=== PATIENT | male | born 2005 | race Caucasian/White ===

== ENCOUNTER 2024-11-04 10:08 | Observation (INO) ==
[2024-11-04 11:24] LABS: Hematocrit (blood only) 44.7 % (42.0-52.0); Hemoglobin 15.1 g/dl (14.0-18.0); Immature Granulocytes # (auto) 0.03 K/uL (0.01-0.20); Immature Granulocytes % (auto) 0.3 %; Mean Corpuscular Hemoglobin 28.7 pg (25.0-34.0); Mean Corpuscular Volume 84.8 fL (80.0-100.0); Platelet Count 205 K/uL (130-400); RDW Standard Deviation 38.5 fL (36.4-46.3); Red Blood Count 5.27 M/uL (4.70-6.10); White Blood Count 11.73 K/ul (4.8-10.8)
[2024-11-04 11:42] LABS: Alanine Aminotransferase 19.0 U/L (7-52); Albumin Globulin Ratio 1.8 (0.9-2); Alkaline Phosphatase 88.0 U/L (34-104); Anion Gap 5.0 (3-11); Bilirubin,Total 1.4 mg/dl (0.2-1.0); Blood Urea Nitrogen 9.0 mg/dl (6-23); Calcium 9.5 mg/dl (8.6-10.3); Carbon Dioxide 29.0 mmol/L (21-32); Chloride 104.0 mmol/L (98-107); Creatinine Clr Calc Pharmacy 175.7 ml/min; Globulin 2.6 gm/dl (2.5-4.0); Glucose 98.0 mg/dl (70-99(Fasting)); Lipase 15.0 U/L (11-82); Potassium 3.9 mmol/L (3.5-5.1); Sodium 138.0 mmol/L (136-145); Total Protein 7.2 gm/dl (6.0-8.3)
[2024-11-04] MEDS: OPTIRAY 320 100ml IV ONE (11:56)
[2024-11-04] MEDS: KETOROLAC TROMETHAMINE 15 MG/ML VIAL IV STA (12:10)
--- NOTE | 2024-11-04 12:30 | CT Scan Report ---
CT SCAN OF THE ABDOMEN AND PELVIS WITH IV CONTRAST CLINICAL HISTORY: Right-sided abdominal pain. COMPARISON STUDY: Abdominal x-rays dated 01/18/2022. Renal ultrasound dated 09/23/2020 TECHNIQUE: Following the IV administration of 93 cc of Optiray 320, CT scan of the abdomen and pelvi s is performed from the lung bases to the proximal femora. Images are reviewed in the axial, sagittal , and coronal planes. IV contrast was administered without complication. A dose lowering technique wa s utilized adhering to the principles of ALARA. CT DOSE: 1379.53 mGy.cm FINDINGS: Lung bases: The heart is normal in size and without pericardial effusion. The lung bases are clear. Liver: The contrast-enhanced liver is normal in size, contour, and attenuation. There is no intrahepa tic biliary ductal dilatation. The hepatic veins and portal veins are patent. Gallbladder: Unremarkable. Spleen: Normal in size and attenuation. Pancreas: Unremarkable. Adrenal glands: Unremarkable. Kidneys: The contrast enhanced kidneys are normal in size and without hydronephrosis. The kidneys enh ance symmetrically. Abdominal vasculature: The abdominal aorta is normal in course and caliber. Bowel: There is no bowel obstruction. The distal appendix is fluid-filled and mildly dilated measurin g 8 mm in diameter. The appendiceal wall is thickened and there is periappendiceal inflammation. Find ings are consistent with acute appendicitis. A calcified appendicolith is seen on image #261. No flui d collection is seen to suggest abscess. Peritoneum: There is trace free fluid in the pelvis. No intraperitoneal free air is seen. Lymphadenopathy: None. Pelvic viscera: The bladder, prostate, and seminal vesicles are normal as visualized. Skeletal structures: No lytic or blastic lesions are seen. IMPRESSION: 1. Mild acute appendicitis. 2. There is no evidence of abscess or perforation. 3. Trace free fluid in the pelvis is nonspecific and likely reactive. ACT 112: Negative or not required by law. Electronically signed by: Mason Foley M.D. 11/04/2024 12:28 PM
[2024-11-04] MEDS: PIPERACILLIN/TAZOBACTAM 4.5 GM/100 ML BAG IV ONE (14:41)
[2024-11-04] MEDS ORDERED: ATROPINE SULFATE 0.1 MG/ML 10ML SYR IV PRN (15:16)
[2024-11-04] MEDS ORDERED: ONDANSETRON INJ 2 MG/ML 2 ML VIAL IV PRN ×2 (15:16→19:00)
--- NOTE | 2024-11-04 15:17 | Anesthesiology Consultation ---
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 Consults Requested none History Surgery Operation Date: 11/04/24 13:45 Proposed Procedures p Laparoscopic Appendectomy - Surendra Looney MD Height/Weight Height: 6 ft 4 in Weight: 98.2 kg Allergies Allergy/AdvReac Type Severity Reaction Status Date / Time No Known Allergies Allergy Unverified 11/03/23 17:12 Past Surgical History Surgical History No pertinent past surgical history Social History Smoking Status: Never smoker Physical Exam Vital Signs Last Vital Signs Temp 37 C 11/04/24 10:14 Pulse 65 11/04/24 15:11 Resp 18 11/04/24 15:11 BP 135/71 11/04/24 15:11 Pulse Ox 99 11/04/24 15:11 O2 Del Method Room Air 11/04/24 15:11 Testing Laboratory Results 11/04/24 11:10 11/04/24 11:10
[2024-11-04] MEDS ORDERED: DEXAMETHASONE SOD INJ 4 MG/ML VIAL ONE (15:27)
[2024-11-04] MEDS ORDERED: MIDAZOLAM HCL 1 MG/ML 2ML VIAL ONE (15:27)
[2024-11-04] MEDS ORDERED: ONDANSETRON INJ 2 MG/ML 2 ML VIAL ONE (15:27)
[2024-11-04] MEDS ORDERED: LIDOCAINE 2% 2 ML VIAL/AMP(20MG/ML) INFIL ONE (15:27)
[2024-11-04] MEDS ORDERED: PROPOFOL IV EMULSION 10 MG/ML 20 ML VIAL IV ONE ×2 (15:27→16:30)
--- NOTE | 2024-11-04 15:27 | Emergency Department Note ---
ED Provider Note History of Present Illness Chief Complaint: Abdominal Pain Stated Complaint: PAIN IN LOWER ABD RIGHT SIDE Time Seen by Provider: 11/04/24 10:18 Source: patient Mode of arrival: ambulatory Limitations: no limitations Patient is a 18 year old male that presents to the emergency department with complaints of right sided abdominal pain. Patient reports that his pain started last evening and has persisted since. Patient denies any nausea, vomiting or urinary symptoms. Patient denies any previous abdominal surgery and notes that he still has his appendix. Home Medications Medication Instructions Recorded Confirmed Type oxycodone-acetaminophen 5 mg-325 1 tab PO Q6H PRN pain #5 tabs 11/05/24 Rx mg tablet Allergies Allergy/AdvReac Type Severity Reaction Status Date / Time No Known Allergies Allergy Unverified 11/03/23 17:12 Past Med/Surg History Problem List (Updated 11/06/24 @ 04:02 by STEVEN [place]) Appendicitis (Acute) Asthma Surgical History No pertinent past surgical history Social History Smoking Status: Current every day smoker Tobacco Type: E-cigarettes / Vaping Second Hand Exposure: No; Do You Dip or Chew Tobacco: No; Tobacco Cessation Education Requested by Patient: No Hx Alcohol Use: No Hx Substance Use: No Preferred Language: Cape Verdean Communication Ability: Effective Patient Care Provider Required: No Beliefs That Will Affect Care: None Current Living Situation: Parent Other Information That Helps Us Care for You: No Feels Safe at Home: Yes Safety Concerns: Feels Safe At This Time Assistive Devices: None Physical Exam Vital Signs Vital Signs - 24 hr 11/04/24 10:14 11/04/24 11:30 11/04/24 13:00 Temperature 37 C Temperature Source Temporal Artery Scan Pulse Rate 96 H Pulse Rate [Left Finger] 99 H 68 Pulse Rhythm [Left Finger] Regular Pulse Strength [Left Finger] Normal Respiratory Rate 18 20 14 Respiratory Effort / Characteristics Non-Labored Spontaneous Non-Labored Spontaneous Non-Labored Respiratory Depth Normal Normal Normal Respiratory Pattern Regular Regular Blood Pressure 130/79 Blood Pressure [Left Arm] 144/92 H 138/76 Blood Pressure Mean 96 Blood Pressure Mean [Left Arm] 109 96 Blood Pressure Position Sitting Blood Pressure Position [Left Arm] Sitting Pulse Oximetry 96 93 96 Oxygen Delivery Method Room Air Room Air Room Air Sepsis Recent Fever Within 48 Hours No Sepsis New/Unexplained Change in Mental Status No Sepsis Action Taken by Nursing No Action Required 11/04/24 13:16 11/04/24 14:31 11/04/24 15:11 Temperature Temperature Source Pulse Rate 69 Pulse Rate [Left Finger] 56 L 65 Pulse Rhythm [Left Finger] Regular Pulse Strength [Left Finger] Normal Respiratory Rate 20 18 Respiratory Effort / Characteristics Non-Labored Spontaneous Non-Labored Spontaneous Respiratory Depth Normal Normal Respiratory Pattern Regular Blood Pressure 138/76 Blood Pressure [Left Arm] 101/54 L 135/71 Blood Pressure Mean 96 Blood Pressure Mean [Left Arm] 69 92 Blood Pressure Position Blood Pressure Position [Left Arm] Sitting Lying Pulse Oximetry 99 98 99 Oxygen Delivery Method Room Air Room Air Room Air Sepsis Recent Fever Within 48 Hours Sepsis New/Unexplained Change in Mental Status Sepsis Action Taken by Nursing VITAL SIGNS - Vital signs and nursing notes were reviewed. GENERAL - 18-year-old male appearing his stated age who is in no acute distress. Communicates well with provider and answers questions appropriately. HEAD - NC/AT. EYES - PERRL with EOMI bilaterally. Conjunctiva pink and moist with no injection noted. EARS - No deformities of external structures noted on gross examination bilaterally. LUNGS - Chest wall symmetric without accessory muscle use, intercostals retractions, or central cyanosis. Breath sounds clear throughout all kc. No wheezes, rales, or rhonchi appreciated. CARDIAC - RRR with S1/S2. No murmur, rubs, or gallops appreciated. ABDOMEN - Abdominal contour without pulsations or visible masses. Negative Issac's or Reza Felipe's Signs. BS normoactive all four quadrants. Mildly increased tenderness to palpation appreciated in the right lower quadrant. No guarding. No Rebound Tenderness. No palpable masses, hepatosplenomegaly, or ascites noted. NEUROLOGIC - Cranial nerves II through XII grossly intact. Sensory intact to light touch throughout. PSYCH - A&Ox3 and cooperates fully with examiner. Pt is very pleasant and interacts well with examiner. Course Administered Medications Discontinued Medications Bupivacaine HCl/Epinephrine Bitart (Bupivacaine/Epinephrine 0.5% Mpf 1:200,000 30 Ml Vial) Confirm Administered Dose 30 ml .ROUTE .STK-MED ONE Stop: 11/04/24 15:38 Last Admin: 11/04/24 16:42 Dose: 20 ml Documented By: CHRIS Piperacillin Sod/Tazobactam Sod (Zosyn) 4.5 gm in 100 mls @ 200 mls/hr IV NOW ONE; Protocol Stop: 11/04/24 14:57 Last Infusion: 11/04/24 15:13 Dose: Infused Documented By: Admin: 11/04/24 14:41 Dose: 200 mls/hr Documented By: WARD Lactated Ringer's (Lr) 1,000 mls @ 80 mls/hr IV .[id number] REYNOLD Stop: 11/07/24 18:59 Last Admin: 11/05/24 08:02 Dose: 80 mls/hr Documented By: Infusion: 11/05/24 08:02 Dose: Infused Documented By: Admin: 11/04/24 19:37 Dose: 80 mls/hr Documented By: DO Piperacillin Sod/Tazobactam Sod (Zosyn) 4.5 gm in 100 mls @ 25 mls/hr IV Q8H REYNOLD; Protocol Stop: 11/14/24 20:59 Last Infusion: 11/05/24 09:53 Dose: Infused Documented By: Admin: 11/05/24 05:46 Dose: 25 mls/hr Documented By: Infusion: 11/05/24 01:39 Dose: Infused Documented By: Admin: 11/04/24 21:20 Dose: 25 mls/hr Documented By: DO Ioversol (Optiray 320 100ml) 93 ml IV ONCE ONE Stop: 11/04/24 11:57 Last Admin: 11/04/24 11:56 Dose: 93 ml Documented By: AVNI Ketorolac Tromethamine (Ketorolac Tromethamine 15 Mg/Ml Vial) 15 mg IV NOW STA Stop: 11/04/24 12:06 Last Admin: 11/04/24 12:10 Dose: 15 mg Documented By: WARD Medical Decision Making Differential Diagnosis Differential diagnoses includes gastritis, gastroenteritis, IBS, small bowel obstruction, pancreatitis, peritonitis, constipation, diverticulitis, appendicitis, abdominal abscess, among others. Medical Records Attestation: I reviewed the patient's medical records. Home Medications was personally reviewed by me Laboratory Data Attestation: I reviewed the patient's lab results. 11/04/24 11:10 11/04/24 11:10 Lab Results 11/04/24 Range/Units 11:10 WBC 11.73 H (4.8-10.8) K/ul RBC 5.27 (4.70-6.10) M/uL Hgb 15.1 (14.0-18.0) g/dl Hct 44.7 (42.0-52.0) % MCV 84.8 (80.0-100.0) fL MCH 28.7 (25.0-34.0) pg MCHC 33.8 (32.0-36.0) g/dL RDW Std Deviation 38.5 (36.4-46.3) fL RDW Coeff of Ariella 12.5 (11.5-14.5) % Plt Count 205 (130-400) K/uL MPV 12.1 (9.4-12.4) fL Immature Gran % (Auto) 0.3 % Neut % (Auto) 81.8 % Lymph % (Auto) 8.5 % Morrill % (Auto) 9.0 % Eos % (Auto) 0.1 % Baso % (Auto) 0.3 % Neut # (Auto) 9.59 H (1.40-6.50) K/uL Lymph # (Auto) 1.00 L (1.20-3.40) K/uL Morrill # (Auto) 1.06 H (0.11-0.59) K/uL Eos # (Auto) 0.01 (0.00-0.50) K/uL Baso # (Auto) 0.04 (0.00-0.20) K/uL Immature Gran # (Auto) 0.03 (0.01-0.20) K/uL Sodium 138 (136-145) mmol/L Potassium 3.9 (3.5-5.1) mmol/L Chloride 104 (98-107) mmol/L Carbon Dioxide 29 (21-32) mmol/L Anion Gap 5 (3-11) BUN 9 (6-23) mg/dl Creatinine 0.83 (0.6-1.4) mg/dl Est Cr Clr Drug Dosing 175.7 ml/min eGFR 129.30 BUN/Creatinine Ratio 10.8 (10-20) Glucose 98 (70-99(Fasting)) mg/dl Calcium 9.5 (8.6-10.3) mg/dl Total Bilirubin 1.4 H (0.2-1.0) mg/dl AST 20 (13-39) U/L ALT 19 (7-52) U/L Alkaline Phosphatase 88 (34-104) U/L Total Protein 7.2 (6.0-8.3) gm/dl Albumin 4.6 (3.4-5.0) gm/dl Globulin 2.6 (2.5-4.0) gm/dl Albumin/Globulin Ratio 1.8 (0.9-2) Lipase 15 (11-82) U/L Imaging Data Radiologist's Impression: Abdomen/Pelvis CT 11/04/24 10:18 CT SCAN OF THE ABDOMEN AND PELVIS WITH IV CONTRAST CLINICAL HISTORY: Right-sided abdominal pain. COMPARISON STUDY: Abdominal x-rays dated 01/18/2022. Renal ultrasound dated 09/23/2020 TECHNIQUE: Following the IV administration of 93 cc of Optiray 320, CT scan of the abdomen and pelvis is performed from the lung bases to the proximal femora. Images are reviewed in the axial, sagittal, and coronal planes. IV contrast was administered without complication. A dose lowering technique was utilized adhering to the principles of ALARA. CT DOSE: 1379.53 mGy.cm FINDINGS: Lung bases: The heart is normal in size and without pericardial effusion. The lung bases are clear. Liver: The contrast-enhanced liver is normal in size, contour, and attenuation. There is no intrahepatic biliary ductal dilatation. The hepatic veins and portal veins are patent. Gallbladder: Unremarkable. Spleen: Normal in size and attenuation. Pancreas: Unremarkable. Adrenal glands: Unremarkable. Kidneys: The contrast enhanced kidneys are normal in size and without hydronephrosis. The kidneys enhance symmetrically. Abdominal vasculature: The abdominal aorta is normal in course and caliber. Bowel: There is no bowel obstruction. The distal appendix is fluid-filled and mildly dilated measuring 8 mm in diameter. The appendiceal wall is thickened and there is periappendiceal inflammation. Findings are consistent with acute appendicitis. A calcified appendicolith is seen on image #261. No fluid collection is seen to suggest abscess. Peritoneum: There is trace free fluid in the pelvis. No intraperitoneal free air is seen. Lymphadenopathy: None. Pelvic viscera: The bladder, prostate, and seminal vesicles are normal as visualized. Skeletal structures: No lytic or blastic lesions are seen. IMPRESSION: 1. Mild acute appendicitis. 2. There is no evidence of abscess or perforation. 3. Trace free fluid in the pelvis is nonspecific and likely reactive. ACT 112: Negative or not required by law. Electronically signed by: Mason Foley M.D. 11/04/2024 12:28 PM MDM Narrative Patient is a 18 year old male that presents to the emergency department with complaints of right sided abdominal pain. Patient reports that his pain started last evening and has persisted since. Patient denies any nausea, vomiting or urinary symptoms. Patient denies any previous abdominal surgery and notes that he still has his appendix. Patient was evaluated by myself and findings were noted in the physical exam above. Patient was ordered IV placement, lab work, urinalysis and a CT of the abdomen and pelvis. Patient declined pain medication at this time. Patient's lab work resulted with a mildly elevated white blood cell count of 11.73. Patient had no indication of anemia with a hemoglobin of 15.1 and hematocrit of 44.7. Patient had no significant electrolyte imbalance noted. Total bilirubin was mildly elevated at 1.4. Patient had a CT of the abdomen and pelvis completed which showed mild acute appendicitis with no evidence of abscess or perforation. I discussed all of these findings with the patient who verbalized understanding. I discussed with the patient that i would consult general surgery as they would likely take his appendix out tonight or tomorrow. Patient verbalized understanding and was agreeable to that plan. Patient was ordered a dose of Zosyn at this time and still declined need for pain medication, patient reports that he is having some discomfort but it is tolerable at this time. I contacted the audio visual secretary to reach out to Dr. Looney through the appropriate scrap preparation supervisor procedure. After a good amount of time, I did speak with Dr. Looney about this patient. I gave him a report on the patient's chief complaint, current status and the results of his imaging and lab work. I made Dr. Looney aware that the patient has not had anything to eat or drink today and was overall a healthy [address] Looney verbalized understanding and agreed to take the patient to the OR under his service. Please refer to Dr. Looney and the OR team's documentation for further evaluation and management of this patient. Impression Appendicitis Discharge Plan Visit Data Chief Complaint: Abdominal Pain Stated Complaint: PAIN IN LOWER ABD RIGHT SIDE ED Provider: Lorie Padilla ED Midlevel Provider: Ana Esteban Discharge Problem: Appendicitis Patient Disposition: Admitted As Inpatient Condition: Fair Discharge Instructions Interventions: ED Discharge Assessment Last Done: 11/04/24 15:16 ED DC CONDITION Conditon at Discharge Condition at Discharge: Fair Discharge Problem: Appendicitis Qualifiers: Appendicitis type: acute appendicitis Acute appendicitis type: unspecified acute appendicitis type Qualified Code(s): K35.80 - Unspecified acute appendicitis
[2024-11-04] MEDS ORDERED: ROCURONIUM BROMIDE 10 MG/ML 5 ML VIAL IV ONE (15:28)
[2024-11-04] MEDS ORDERED: ACETAMINOPHEN 1000 MG/100 ML IV IV ONE (15:41)
--- NOTE | 2024-11-04 15:47 | History & Physical Report ---
Date of Service November 04, 2024 Assessment & Plan (1) Appendicitis: Plan: IV abx IVF to OR for lap appendectomy History of Present Illness Primary Care Provider: NO PCP This is a 18-year-old male came in with acute abdominal pain. He underwent a workup in which a CT scan shows an acute appendicitis with an appendicolith. Allergies Allergy/AdvReac Type Severity Reaction Status Date / Time No Known Allergies Allergy Unverified 11/03/23 17:12 Past Med/Surg History Problem List (Updated 11/04/24 @ 15:47 by Surendra Looney MD) Appendicitis Asthma Surgical History No pertinent past surgical history Social History Smoking Status: Never smoker Preferred Language: Eritrean Feels Safe at Home: Yes Review of Systems no fever and no chills no problem reported no problem reported no cough and no dyspnea no chest pain + abdominal pain and + nausea; no vomiting and no change in bowel habits no dysuria no back pain no problem reported no localized weakness and no generalized weakness no behavioral changes no problem reported no easy bleeding and no easy bruising Physical Exam Constitutional: WD/WN, vitals as above Eyes: no scleral abnormality ENMT: external ear and nose normal, oropharynx normal Neck: trachea midline Respiratory: normal respiratory effort, lungs clear to auscultation Cardiovascular: RRR, no murmur, no edema Gastrointestinal (Abdomen): Inspection/Auscultation: abdomen normal to inspection and normal bowel sounds; abdomen not distended Percussion/Palpation: + abdomen tender and abdomen soft; no guarding and abdomen not rigid Musculoskeletal: Head/Neck/Chest: normocephalic and head atraumatic Skin: no rashes, warm and dry Results & Data Vital Signs (Past 12 Hours) Vital Signs Temp Pulse Pulse Resp BP BP Pulse Ox 11/04/24 15:20 36.5 C 61 16 121/65 96 11/04/24 15:11 65 18 135/71 99 11/04/24 14:31 56 L 20 101/54 L 98 11/04/24 13:16 69 138/76 99 11/04/24 13:00 68 14 138/76 96 11/04/24 11:30 99 H 20 144/92 H 93 07/08/25 10:14 37 C 96 H 18 130/79 96 O2 Del Method 11/04/24 15:20 Room Air 11/04/24 15:11 Room Air 11/04/24 14:31 Room Air 11/04/24 13:16 Room Air 11/04/24 13:00 Room Air 11/04/24 11:30 Room Air 11/04/24 10:14 Room Air Diagnostic Findings CT SCAN OF THE ABDOMEN AND PELVIS WITH IV CONTRAST CLINICAL HISTORY: Right-sided abdominal pain. COMPARISON STUDY: Abdominal x-rays dated 01/18/2022. Renal ultrasound dated 09/23/2020 TECHNIQUE: Following the IV administration of 93 cc of Optiray 320, CT scan of the abdomen and pelvis is performed from the lung bases to the proximal femora. Images are reviewed in the axial, sagittal, and coronal planes. IV contrast was administered without complication. A dose lowering technique was utilized adhering to the principles of ALARA. CT DOSE: 1379.53 mGy.cm FINDINGS: Lung bases: The heart is normal in size and without pericardial effusion. The lung bases are clear. Liver: The contrast-enhanced liver is normal in size, contour, and attenuation. There is no intrahepatic biliary ductal dilatation. The hepatic veins and portal veins are patent. Gallbladder: Unremarkable. Spleen: Normal in size and attenuation. Pancreas: Unremarkable. Adrenal glands: Unremarkable. Kidneys: The contrast enhanced kidneys are normal in size and without hydronephrosis. The kidneys enhance symmetrically. Abdominal vasculature: The abdominal aorta is normal in course and caliber. Bowel: There is no bowel obstruction. The distal appendix is fluid-filled and mildly dilated measuring 8 mm in diameter. The appendiceal wall is thickened and there is periappendiceal inflammation. Findings are consistent with acute appendicitis. A calcified appendicolith is seen on image #261. No fluid collection is seen to suggest abscess. Peritoneum: There is trace free fluid in the pelvis. No intraperitoneal free air is seen. Lymphadenopathy: None. Pelvic viscera: The bladder, prostate, and seminal vesicles are normal as visualized. Skeletal structures: No lytic or blastic lesions are seen. IMPRESSION: 1. Mild acute appendicitis. 2. There is no evidence of abscess or perforation. 3. Trace free fluid in the pelvis is nonspecific and likely reactive.
[2024-11-04] MEDS ORDERED: SUGAMMADEX SODIUM 200 MG/2 ML VIAL IV ONE (16:37)
[2024-11-04] MEDS: BUPIVACAINE/EPINEPHRINE 0.5% MPF 1:200,000 30 ML VIAL ONE (16:42)
--- NOTE | 2024-11-04 16:54 | Operative Report ---
Post Operative Report Pre & Post Diagnosis Operation Date: 11/04/24 13:45 Acute appendicitis I identified the patient and participated in the time-out.: Yes Procedure Operation Date: 11/04/24 13:45 Laparoscopic appendectomy Surgeon Surendra Looney MD Delivery Driver/Customer Service None Estimated Blood Loss 7 Findings Consistent with Post-Op Diagnosis Specimens Appendix to pathology Drains None Anesthesia Type General Complications none Disposition Accompanied Patient To Recovery: No Disposition: Recovery Room Indications Is a 18-year-old male admitted to the ED with acute abdominal pain. Workup showed an acute appendicitis by CT scan. We talked in detail about this and recommended a laparoscopic appendectomy and ectomy. He had an appendicolith. Description of Procedure The patient was taken to the OR and underwent excellent general anesthesia. Their abdomen was prepped and draped in normal sterile fashion. A transverse supraumbilical incision was made, towel clamps were used to create tension on the abdominal wall as a visualized 11 port was placed in the supraumbilical position into the peritoneal cavity. Good pneumoperitoneum was achieved to about 15 mmHg pressure. Once this was done, a 12 mm left lower quadrant port , a 5mm suprapubic port , and a 5mm right upper quadrant port were all placed in normal fashion. Patient was then placed in head down and rolled to the left. A good diagnostic lap was performed. They had obvious acute appendicitis. The cecum was grasped with an atraumatic grasper. A grasper was then was then used to grasp the tip of the appendix. The mesoappendix was splayed open and a harmonic scalpel was used to take down the mesoappendix. The base of the appendix was identified and an Endo MAEGAN stapler was used to transect the appendix at its base. A endobag was then inserted through the left lower quadrant port and the appendix was placed into the bag, The bag was removed through the left lower quadrant port. The appendix was sent for pathologic evaluation. The pneumoperitoneum was re-established after the 12 mm port was replaced. Saline was then used to irrigate the abdomen. There was no active bleeding nor any other abnormalities noted in the abdomen. The patient was then placed back in neutral position, the ports were removed and the pneumoperitoneum decompressed. The 12mm port fascia was then closed using a 0 Vicryl. The skin was then anesthetized with 0.5% Marcaine with epinephrine local. Interrupted Vicryl is used to close the skin. Dermabond was used to reinforce the incisions. Sterile dressings were applied. The patient tolerated procedure without complications was sent to the postop recovery period of observation. They will be sent to the floor for the rest of their care. I attest to the content of the Intraoperative Record and any orders documented therein. Any exceptions are noted below.
--- NOTE | 2024-11-04 17:37 | Anesthesiology Progress Note ---
Date of Service November 04, 2024 Anesthesia Post Procedure Vital Signs Vital Signs: Temp Pulse Pulse Pulse Resp BP BP 11/04/24 17:30 36.9 C 59 L 18 127/73 11/04/24 17:20 62 20 124/68 11/04/24 17:10 67 18 136/67 11/04/24 17:00 36.2 C L 85 18 162/82 H 11/04/24 15:20 36.5 C 61 16 121/65 11/04/24 15:11 65 18 135/71 11/04/24 14:31 56 L 20 101/54 L 11/04/24 13:16 69 138/76 11/04/24 13:00 68 14 138/76 11/04/24 11:30 99 H 20 144/92 H 11/04/24 10:14 37 C 96 H 18 130/79 Pulse Ox O2 Del Method O2 Flow Rate 11/04/24 17:30 97 Room Air 11/04/24 17:20 100 Oxymask 2 11/04/24 17:10 100 Oxymask 4 11/04/24 17:00 100 Oxymask 6 11/04/24 15:20 96 Room Air 11/04/24 15:11 99 Room Air 11/04/24 14:31 98 Room Air 11/04/24 13:16 99 Room Air 11/04/24 13:00 96 Room Air 11/04/24 11:30 93 Room Air 11/04/24 10:14 96 Room Air Pain Intensity Right Abdomen: Pain Intensity: 4 Transfer of Care Handoff Completed per policy Notes Mental Status: alert / awake / arousable Patient Amnestic to Procedure: Yes Nausea / Vomiting: adequately controlled Pain: adequately controlled Airway Patency, RR, SpO2: stable & adequate BP & HR: stable & adequate Hydration State: stable & adequate Anesthetic Complications: no major complications apparent and Pt Satisfied with anesthetic care
[2024-11-04] MEDS ORDERED: MoRPHine SULFATE 4 MG/ML 1 ML CARP\\VIAL IV PRN (19:00)
[2024-11-04] MEDS ORDERED: MoRPHine SULFATE 2 MG/ML CARP IV PRN (19:00)
[2024-11-04] MEDS ORDERED: PROMETHAZINE 25 MG/51 ML BAG IV PRN (19:00)
[2024-11-04] MEDS: LACTATED RINGER'S 1,000 ML IV SCH (19:37)
[2024-11-04] MEDS: PIPERACILLIN/TAZOBACTAM 4.5 GM/100 ML BAG IV SCH (21:20)
[2024-11-05 00:07] LABS: Appearance Urine Clear (Clear); Glucose Urine UA Negative (Negative)
[2024-11-05 07:11] VITALS: O2SAT 97
--- NOTE | 2024-11-05 10:40 | Discharge Summary ---
Date of Service November 05, 2024 Admission HPI Per Admitting Provider This is a 18-year-old male came in with acute abdominal pain. He underwent a workup in which a CT scan shows an acute appendicitis with an appendicolith. Principal Diagnosis Acute appendicitis with appendicolith Discharge Exam Constitutional WD/WN, vitals as above cooperative and comfortable; no acute distress and not ill appearing Respiratory normal respiratory effort; no respiratory distress and no labored breathing Gastrointestinal (Abdomen) Inspection/Auscultation: abdomen normal to inspection and + abdominal surgical incision (c/d/i with dermabond); abdomen not distended Percussion/Palpation: + abdomen tender (minimal at incision sites, appropriate postop) and abdomen soft; no guarding, abdomen not rigid and abdomen not firm Skin no rashes, warm and dry Psychiatric A+Ox3, euthymic affect Discharge Data Allergies Allergy/AdvReac Type Severity Reaction Status Date / Time No Known Allergies Allergy Unverified 11/03/23 17:12 Consultations 11/04/24 12:57 Consult General Surgery Stat Procedures Performed Operation Date: 11/04/24 13:45 Actual Procedures p Laparoscopic Appendectomy(Not Applicable) - Surendra Looney MD Ordered Studies 11/04/24 10:18 CT Abd and Pelvis [CT abd pelvis IV con only] Stat Hospital Course (1) Appendicitis: Patient was taken to operating room from emergency department for laparoscopic appendectomy on 11/04/[address] Looney. Patient found to have uncomplicated appendicitis. Tolerated procedure without difficulty and transferred to recovery then to med/surg floor for postop care. Tolerated advanced diet and postoperative pain was controlled. Patient was discharged home on POD # 1 in stable condition. Total Time Total Time Spent Total Time Spent (In Minutes): 20 Total Time Includes: Examination of the Patient, Discharge Planning, Medication Reconciliation and Communication With Other Providers Discharge Plan Discharge Items Patient Disposition: Home - Self-Care Reason For Visit: APPENDICITIS Discharge Diagnosis: acute appendicitis Activity: Per Instructions section Non-emergency contact: Primary Care Provider and Surgeon Call non-emergency contact if: you have any medication questions, your symptoms worsen, your pain is worsening, you have a fever, your temperature is above 101, your wound has increased redness, your wound has increased drainage and your wound pain has increased Follow-up/Referrals: Katherine Rosenberg PA-C [Physician Padded Products Finisher] - PCP,NO [Primary Care Provider] - Diet: Regular Addtl Attending Provider Instructions: Post-Surgical ~Discharge Instructions Activity Recommendations: - lifting limitation: (20 pounds for 23weeks), - exercise/sex/sports limit: (nonstrenuous for 2 weeks), - driving or machine use limit: (none for at least 3 days and no longer taking narcotic pain medication), - Shower/bathe limit: (may shower, no submerging incisions underwater for 2 weeks) Diet: - Resume previous diet SPECIAL CARE INSTRUCTIONS: - May shower. Let water run over area and pat dry. - Leave surgical glue on incisions, this will fall off on its own. - Call the surgeon's office with any questions or concerns - - (ex. temperature higher than 101 degrees F, excessive bleeding or pain). MEDICATIONS: - Resume previous medications unless instructed otherwise by your surgeon. - May alternate extra strength Tylenol and Ibuprofen as needed for pain -650 mg Tylenol every 6 hours as needed - Ibuprofen 600 mg every 6 hours as needed , take with food - Percocet 1 every 6 hours, as needed for moderate to severe pain Be cautious of taking Tylenol with Percocet. Each tablet of Percocet has 325 mg of Tylenol. Do not exceed 3000 mg of Tylenol in 24 hour period. - Recommend daily stool softener (Colace) while taking narcotic pain medication to prevent constipation or straining. Drink plenty of water daily. FOLLOW UP VISIT: - If not already scheduled, please call the office to schedule a two week follow-up appointment. Office number Pending Studies at Discharge: Yes (pathology) Stand-Alone Forms: [facility] [employer], Smoking Cessation Medications and DC Order Prescriptions: New oxycodone-acetaminophen 5-325 mg tablet 1 tab PO Q6H PRN (Reason: pain) Qty: 5 0RF Discharge Orders: Discharge Order (Routine); Ordered 11/05/24 Ordered By: Katherine Rosenberg Admission Data Admit Date/Time: 11/04/24 16:57 Attending Provider: Surendra Looney Admit Provider: Surendra Looney Primary Care Provider: PCP,NO Other Providers: Surendra Looney
[2024-11-05 11:35] VITALS: BP 123/51; PULSE 79; RESP 18; TEMP 98.2
== END 2024-11-05 14:05 | disposition home or self-care (01) ==
LOC: ED 10:08 → OR 15:50 → 3E 15:50

== ENCOUNTER 2025-04-09 14:24 | Observation (INO) ==
[2025-04-09] MEDS: ALUMINUM/MAGNESIUM SUSP 30 ML UDC PO STA (16:12)
[2025-04-09] MEDS: ONDANSETRON INJ 2 MG/ML 2 ML VIAL IV STA (16:12)
[2025-04-09] MEDS: FAMOTIDINE 20MG IV PUSH 20 MG/5 ML SYR IV STA (16:12)
[2025-04-09] MEDS: SODIUM CHLORIDE 0.9% 1,000 ML IV STA (16:13)
[2025-04-09 16:29] LABS: Hematocrit (blood only) 43.1 % (42.0-52.0); Hemoglobin 15.3 g/dL (14.0-18.0); Immature Granulocytes # (auto) 0.02 K/uL (0.01-0.20); Immature Granulocytes % (auto) 0.3 %; Mean Corpuscular Hemoglobin 29.2 pg (25.0-34.0); Mean Corpuscular Volume 82.3 fL (80.0-100.0); Platelet Count 209 K/uL (130-400); RDW Standard Deviation 36.3 fL (36.4-46.3); Red Blood Count 5.24 M/uL (4.70-6.10); White Blood Count 7.47 K/ul (4.8-10.8)
--- NOTE | 2025-04-09 16:29 | Electrocardiogram Report ---
Test Reason : Blood Pressure : */* mmHG Vent. Rate : 87 BPM Atrial Rate : 87 BPM P-R Int : 156 ms QRS Dur : 106 ms QT Int : 358 ms P-R-T Axes : 71 13 41 degrees QTcB Int : 430 ms Normal sinus rhythm with sinus arrhythmia Normal ECG No previous ECGs available Confirmed by Saravanan Pascual ([id number]) on 04/09/2025 4:29:32 PM Referred By: Confirmed By: Saravanan Pascual
[2025-04-09 16:44] LABS: Alanine Aminotransferase 278.0 U/L (7-52); Albumin Globulin Ratio 1.5 (0.9-2); Albumin Level 4.6 gm/dl (3.4-5.0); Alkaline Phosphatase 190.0 U/L (34-104); Anion Gap 8.0 (3-11); Bilirubin,Total 3.1 mg/dl (0.2-1.0); Blood Urea Nitrogen 10.0 mg/dl (6-23); Calcium 9.7 mg/dl (8.6-10.3); Carbon Dioxide 29.0 mmol/L (21-32); Chloride 100.0 mmol/L (98-107); Creatinine Clr Calc Pharmacy 207.1 ml/min; Globulin 3.1 gm/dl (2.5-4.0); Glucose 92.0 mg/dl (70-99(Fasting)); Lipase 24.0 U/L (11-82); Potassium 4.1 mmol/L (3.5-5.1); Sodium 137.0 mmol/L (136-145); Total Protein 7.7 gm/dl (6.0-8.3)
[2025-04-09 16:56] LABS: INR 1.1 (0.9-1.1); Prothrombin Time 11.8 Seconds (9.0-12.0)
--- NOTE | 2025-04-09 17:14 | XRay Report ---
Technique: 2 frontal views of the chest were obtained Comparison is made to the prior examinations dated 01/18/2022 Findings: There are no confluent pulmonary infiltrates. The heart size is within normal limits. No pleural effusion or pneumothorax is seen. There is no definite pulmonary nodule. No fracture is noted. No foreign body is seen Impression: No active disease Electronically signed by Hosea Mendes 04-09-2025 5:14 PM
--- NOTE | 2025-04-09 18:46 | Emergency Department Note ---
Impression & Plan Abdominal pain, epigastric, Transaminitis, High bilirubin ED Provider Note CHIEF COMPLAINT: Upper abdominal pain, increased pain with deep breathing HISTORY OF PRESENT ILLNESS: This 19-year-old male patient presents to the emergency department via private vehicle, by mother for evaluation of epigastric pain. The patient reports increased pain with deep breathing. He denies any chest pain. He states the pain is very sharp in nature. It is worse with deep breathing and certain movements. He states he does feel it at rest while sitting and also while lying down. Patient denies any shortness of breath. He denies any nausea or vomiting. He states he was eating spicy tacos the day the pain started. Patient denies any fever or illness. No diarrhea or constipation. Dysuria, urinary frequency, urinary hesitancy, hematuria. No history of similar symptoms. History provided by: Patient REVIEW OF SYSTEMS: A 10 system review of systems was performed with positives and pertinent negatives listed in the history of present illness. All other systems were reviewed and are negative. ALLERGIES: NKDA PHYSICAL EXAM: VITALS: Vitals are noted on the nurse's note and reviewed by myself. GENERAL: This is a 19-year-old male, in no acute distress, nondiaphoretic, well- developed well-nourished. SKIN: The skin was without rashes, erythema, edema, or bruising. There is no tenting of the skin. Capillary refill less than 2 seconds. HEAD: Normocephalic atraumatic. EYES: Conjunctivae without injection, sclerae without icterus. MOUTH: Mucous membranes moist. NECK: Supple without nuchal rigidity. No lymphadenopathy. Cervical spine is nontender. No JVD. HEART: Regular rate and rhythm without murmurs gallops or rubs. LUNGS: Clear to auscultation bilaterally without wheezes, rales or rhonchi. No retractions or accessory muscle use. ABDOMEN: Positive bowel sounds x 4. Epigastric tenderness to palpation. Abdomen is otherwise soft, nontender, without masses or organomegaly. Mariano sign negative. No guarding or rebound tenderness. MUSCULOSKELETAL: No muscle atrophy, erythema, or edema noted. Full range of motion without joint tenderness in all extremities. No tenderness to palpation. Normal gait. Strength 5/5 throughout. NEURO: Patient was alert and oriented to person place and time. No focal neurological deficits. An order was placed for continuous continuous still operator. The monitor showed a normal sinus rhythm at a ventricular rate of 94 bpm, per my interpretation. EKG was reviewed by myself and found to be normal sinus rhythm with sinus arrhythmia at a rate of 87 beats per minute and per my interpretation reveals no ST elevation or depression. No T wave inversions. No prior EKG available for comparison. Imaging as interpreted by myself and the radiologist revealed no abnormal findings no CXR, hepatomegaly on US abd, with radiologist interpretation as above. I agree with the radiologist's findings as based upon my independent interpretation. EMERGENCY DEPARTMENT COURSE: The patient was evaluated as above. The patient presents to the emergency department for epigastric abdominal pain, worse with deep breathing. He denies any shortness of breath or chest pain. He denies any nausea or vomiting. No history of similar symptoms. He has not tried any home remedies for his pain. IV access was obtained, labs were drawn. The patient was hydrated with IV fluids medicated with Zofran, Pepcid, GI cocktail. Chest x-ray was completed and reviewed by myself radiologist as noted. Labs reviewed. Per my interpretation, no leukocytosis or anemia. No thrombocytopenia. Renal function and electrolytes without significant abnormality. D-dimer 220. INR 1.1. Hepatic function concerning for AST 156, ALT of 278, alkaline phosphatase 190. Total bilirubin is elevated at 3.1. Troponin 3.1. Lipase 24. Given the elevated transaminases and bilirubin, did recommend ultrasound to further evaluate the gallbladder. Ultrasound completed and reviewed by myself radiologist as noted. This does show hepatomegaly. No wall thickening, Claudio cholecystic fluid, or sonographic Mariano sign or evidence for cholelithiasis on gallbladder. Case was discussed with the attending physician. I discussed findings with patient at bedside. Did recommend inpatient care for further evaluation of his pain and transaminitis/elevated bilirubin. Feel that the patient would benefit from HIDA scan versus MRCP/ERCP to further evaluate for possible obstruction. The patient did not experience any benefit with the initial round of medications. Patient was agreeable to inpatient management. He was medicated with IV morphine for pain control. He will be [facility] to the [facility]. I discussed the case with Dr. Vergara, [facility] Hospitalist physician. Please see hospitalist dictation regarding ongoing management and care of this patient. This visit is during a period of high volume and high acuity in the emergency department. I attest that I have personally reviewed the patient medication list. I attest that I have reviewed the patient's blood pressure and it was found to be elevated. Suspect this to be situational in nature. GCS: 15 In the evaluation and treatment of this patient the following differential diagnoses were entertained: appendicitis, diverticulitis, obstruction, inflammatory bowel disease, renal colic, PUD, biliary pathology, pancreatitis, mesenteric ischemia, aortic pathology, infections, genitourinary, UTI, perforated viscus, as well as others were entertained. The chart was completed utilizing [employer] Speech voice recognition software. Grammatical errors, random word insertions, pronoun errors, and incomplete sentences are an occasional consequence of this system due to software limitations, ambient noise, and hardware issues. Any formal questions or concerns about the content, text, or information contained within the body of this dictation should be directly addressed to the provider for clarification. Past Med/Surg History Problem List (Updated 04/09/25 @ 19:24 by Jennifer Cali PA-C) High bilirubin (Acute) Transaminitis (Acute) Abdominal pain, epigastric (Acute) Asthma Medical History Appendicitis Surgical History No pertinent past surgical history Social History Smoking Status: Current every day smoker Tobacco Type: E-cigarettes / Vaping Second Hand Exposure: No; Do You Dip or Chew Tobacco: No; Hx Alcohol Use: No Hx Substance Use: No Preferred Language: Thai Communication Ability: Effective Hand Bunch Maker Required: No Beliefs That Will Affect Care: None Current Living Situation: Parent Feels Safe at Home: Yes Assistive Devices: None Allergies Allergies Allergy/AdvReac Type Severity Reaction Status Date / Time No Known Allergies Allergy Unverified 04/09/25 19:17 Home Meds Home Medications Medication Instructions Recorded Confirmed No Known Home Medications 04/09/25 04/09/25 Results & Data (ED) Vital Signs Vital Signs - 24 hr 04/09/25 14:30 04/09/25 19:00 Temperature 36.6 C Temperature Source Temporal Artery Scan Pulse Rate 102 H Pulse Rate [Apical] 94 H Pulse Rhythm [Apical] Regular Pulse Strength [Apical] Normal Respiratory Rate 16 19 Respiratory Effort / Characteristics Non-Labored Spontaneous Non-Labored Spontaneous Respiratory Depth Normal Normal Respiratory Pattern Regular Blood Pressure 150/75 H Blood Pressure [Right Arm] 126/90 Blood Pressure Mean 100 Blood Pressure Mean [Right Arm] 102 Blood Pressure Position Sitting Blood Pressure Position [Right Arm] Sitting Pulse Oximetry 99 100 Oxygen Delivery Method Room Air Room Air Sepsis Recent Fever Within 48 Hours No Sepsis New/Unexplained Change in Mental Status N/A Sepsis Action Taken by Nursing No Action Required Laboratory Data 04/09/25 16:10 04/09/25 16:10 Lab Results 04/09/25 Range/Units 16:10 WBC 7.47 (4.8-10.8) K/ul RBC 5.24 (4.70-6.10) M/uL Hgb 15.3 (14.0-18.0) g/dL Hct 43.1 (42.0-52.0) % MCV 82.3 (80.0-100.0) fL MCH 29.2 (25.0-34.0) pg MCHC 35.5 (32.0-36.0) g/dL RDW Std Deviation 36.3 L (36.4-46.3) fL RDW Coeff of Ariella 12.1 (11.5-14.5) % Plt Count 209 (130-400) K/uL MPV 11.3 (9.4-12.4) fL Immature Gran % (Auto) 0.3 % Neut % (Auto) 72.9 % Lymph % (Auto) 9.8 % [place] % (Auto) 15.3 % Eos % (Auto) 1.6 % Baso % (Auto) 0.1 % Neut # (Auto) 5.45 (1.40-6.50) K/uL Lymph # (Auto) 0.73 L (1.20-3.40) K/uL [place] # (Auto) 1.14 H (0.11-0.59) K/uL Eos # (Auto) 0.12 (0.00-0.50) K/uL Baso # (Auto) 0.01 (0.00-0.20) K/uL Immature Gran # (Auto) 0.02 (0.01-0.20) K/uL PT 11.8 (9.0-12.0) Seconds INR 1.1 (0.9-1.1) D-Dimer 220 (0-500) ug/L FEU Sodium 137 (136-145) mmol/L Potassium 4.1 (3.5-5.1) mmol/L Chloride 100 (98-107) mmol/L Carbon Dioxide 29 (21-32) mmol/L Anion Gap 8 (3-11) BUN 10 (6-23) mg/dl Creatinine 0.68 (0.6-1.4) mg/dl Est Cr Clr Drug Dosing 207.1 ml/min eGFR 136.47 BUN/Creatinine Ratio 14.7 (10-20) Glucose 92 (70-99(Fasting)) mg/dl Calcium 9.7 (8.6-10.3) mg/dl Total Bilirubin 3.1 H (0.2-1.0) mg/dl AST 156 H (13-39) U/L ALT 278 H (7-52) U/L Alkaline Phosphatase 190 H (34-104) U/L Troponin I High Sens 3.1 (0-20) pg/ml Total Protein 7.7 (6.0-8.3) gm/dl Albumin 4.6 (3.4-5.0) gm/dl Globulin 3.1 (2.5-4.0) gm/dl Albumin/Globulin Ratio 1.5 (0.9-2) Lipase 24 (11-82) U/L Administered Medications Discontinued Medications Al Hydrox/Mg Hydrox/Simethicone (Aluminum/Magnesium Susp 30 Ml Udc) 30 ml PO NOW STA Stop: 04/09/25 16:04 Last Admin: 04/09/25 16:12 Dose: 30 ml Documented By: CHRISTINA Sodium Chloride (Nss) 1,000 mls @ 999 mls/hr IV .Q1H1M STA Stop: 04/09/25 17:03 Last Infusion: 04/09/25 17:55 Dose: Infused Documented By: Admin: 04/09/25 16:13 Dose: 999 mls/hr Documented By: CHRISTINA Famotidine (Pepcid 20mg Iv Push) 20 mg in 5 mls @ 2.5 mls/min IV NOW STA Stop: 04/09/25 16:04 Last Admin: 04/09/25 16:12 Dose: 2.5 mls/min Documented By: CHRISTINA Morphine Sulfate (Morphine Sulfate 4 Mg/Ml 1 Ml Carp\Vial) 4 mg IV NOW STA Stop: 04/09/25 18:58 Last Admin: 04/09/25 19:16 Dose: 4 mg Documented By: reji Ondansetron HCl (Ondansetron Inj 2 Mg/Ml 2 Ml Vial) 4 mg IV NOW STA Stop: 04/09/25 16:04 Last Admin: 04/09/25 16:12 Dose: 4 mg Documented By: CHRISTINA Imaging Data Radiologist's Impression: Chest X-Ray 04/09/25 16:04 Technique: 2 frontal views of the chest were obtained Comparison is made to the prior examinations dated 01/18/2022 Findings: There are no confluent pulmonary infiltrates. The heart size is within normal limits. No pleural effusion or pneumothorax is seen. There is no definite pulmonary nodule. No fracture is noted. No foreign body is seen Impression: No active disease Electronically signed by Hosea Mendes 04-09-2025 5:14 PM Abdomen Ultrasound 04/09/25 17:06 EXAMINATION: US abdomen right upper quadrant COMPARISON: None HISTORY: Elevated LFTs TECHNIQUE: The right upper quadrant of the abdomen was scanned in standard fashion with specialized ultrasound transducers using both march scale and limited color Doppler techniques. Findings: Liver: The liver demonstrates normal homogeneous echotexture. No evidence of a focal hepatic mass or intrahepatic biliary ductal dilatation. The main portal vein is patent with antegrade flow. 19.4 cm. Gallbladder: The gallbladder is well distended and of normal morphology. There is no wall thickening, pericholecystic fluid, sonographic Mariano's sign nor evidence for cholelithiasis. Bile Ducts: Both the intra- and extrahepatic biliary system are of normal caliber. The common bile duct measures 4 mm in diameter. Pancreas: Visualized portions of the head and body of the pancreas are unremarkable. Right kidney: Normal echotexture, without mass or hydronephrosis. Right kidney craniocaudal dimension: 12.1 cm Fluid: No evidence of ascites or pleural effusions. Impression: 1. Hepatomegaly Electronically signed by Austyn Clement 04-09-2025 6:45 PM Discharge Plan Visit Data Chief Complaint: Abdominal Pain Stated Complaint: UPPER ABD PAIN ED Provider: Dung [facility]inas ED Midlevel Provider: Jennifer Cali Discharge Problem: Abdominal pain, epigastric, Transaminitis, High bilirubin Patient Disposition: Admitted As Inpatient Condition: Good Forms Stand Alone Forms: [employer] Prescriptions Prescriptions: No Action No Known Home Medications Referrals Referrals: PCP,NO [Primary Care Provider] -
[2025-04-09] MEDS: MoRPHine SULFATE 4 MG/ML 1 ML CARP\\VIAL IV STA (19:16)
--- NOTE | 2025-04-09 20:16 | Communication Note ---
Date of Service: April 09, 2025
[2025-04-09] MEDS: OPTIRAY 320 100ml IV ONE (20:29)
[2025-04-09 20:47] LABS: Appearance Urine Clear (Clear); Glucose Urine UA Negative (Negative)
--- NOTE | 2025-04-09 21:08 | CT Scan Report ---
Exam(s): CT ABDOMEN + PELVIS With Contrast IV Amt: 90 ml optiray 320 EXAM: CT Abdomen and Pelvis With Intravenous Contrast CLINICAL HISTORY: Reason for exam: Elevated LFTs. TECHNIQUE: Axial computed tomography images of the abdomen and pelvis with intravenous contrast. CTDI is 17.55 mGy and DLP is 864.85 mGy-cm. Automated exposure control was utilized for the study. A dose lowering technique was utilized adhering to the principles of ALARA. CONTRAST: Patient received 90 ml optiray 320 of IV contrast COMPARISON: CT abdomen/pelvis on 11/04/2024 FINDINGS: Lung bases: Unremarkable. No mass. No consolidation. ABDOMEN: Liver: Hepatic steatosis. Hepatomegaly. Gallbladder and bile ducts: Unremarkable. No calcified stones. No ductal dilation. Pancreas: Unremarkable. No mass. No ductal dilation. Spleen: Unremarkable. No splenomegaly. Adrenals: Unremarkable. No mass. Kidneys and ureters: Unremarkable. No hydronephrosis or obstructing ureteral stone. Stomach and bowel: Evaluation of the stomach is limited by underdistention. No mucosal thickening. No bowel obstruction or inflammation. PELVIS: Appendix: Prior appendectomy. Bladder: Underdistended bladder limits evaluation. Reproductive: Unremarkable as visualized. ABDOMEN and PELVIS: Intraperitoneal space: Unremarkable. No free air. No significant fluid collection. Bones/joints: No acute fracture. No dislocation. Soft tissues: Unremarkable. Vasculature: Unremarkable. No abdominal aortic aneurysm. Lymph nodes: Prominent mesenteric lymph nodes may be reactive. IMPRESSION: Hepatic steatosis. Hepatomegaly. Electronically signed by: Neal Gooden M.D. 04/09/25 21:06 PM
[2025-04-09] MEDS ORDERED: ACETAMINOPHEN 500 MG TAB PO PRN (21:44)
[2025-04-09] MEDS ORDERED: PROMETHAZINE 6.25 MG/50.25 ML BAG IV PRN (21:44)
--- NOTE | 2025-04-10 00:14 | Magnetic Resonance Report ---
Exam(s): MRI MRCP EXAM: MR Abdomen Without Intravenous Contrast, MRCP Protocol CLINICAL HISTORY: Reason for exam: abn lfts. PAIN: Abdominal Pain: RUQ Other Pain: Pt has intractable abdominal pain X 3 days. TECHNIQUE: Multiplanar magnetic resonance images of the abdomen without intravenous contrast using MRCP protocol. Moderate motion artifact. COMPARISON: CT abdomen pelvis, same day. FINDINGS: Liver: Unremarkable. No intrahepatic ductal dilatation. Gallbladder and bile ducts: Normal gallbladder. No stones or ductal dilatation. CBD 3 mm. Pancreas: Unremarkable. Spleen: Unremarkable. Adrenals: Unremarkable. Kidneys and ureters: Unremarkable. Stomach and bowel: Unremarkable. Intraperitoneal space: Unremarkable. Soft tissues: Unremarkable. Vasculature: Unremarkable. Lymph nodes: Unremarkable. IMPRESSION: 1. Normal gallbladder. No stones or ductal dilatation. 2. Moderate motion artifact. Electronically signed by: Victoria Hood M.D. 04/10/25 00:13 AM
--- NOTE | 2025-04-10 00:30 | History & Physical Report ---
Date of Service April 10, 2025 Assessment & Plan (1) Abdominal pain, epigastric: Plan: Assessment and plan below following discussion of case with ED provider and reviewing patient history/pertinent normal/abnormal diagnostic test results. Abdominal pain with transaminitis Hepatic steatosis on imaging Bronchial asthma, stable OBS Admit to medical Follow LFTs GI consult re: transaminitis DVT prophylaxis. SCDs Full code Patient mother requesting updates providers. Ms. Frances Eastman, contact #[phone]. Text document was generated using [employer] voice recognition software. It may contain grammatical or spelling errors. Kindly contact undersigned for clarification of any documentation item in question. History of Present Illness Chief Complaint: Abdominal pain Primary Care Provider: Wilelm Velasco History obtained from patient, family, and records. Medical history significant for bronchial asthma. Last confinement October 2024 under General Surgery service for acute appendicitis status post surgery. Last week, patient noted intermittent burping symptoms somewhat precipitated by consumption of spicy chips. 3 days ago, patient noted intermittent achy epigastric pain associate with nausea and burping symptoms. Transient diarrhea symptoms. No fever, no chills. No unusual chest pain or SOB. Not sure about sick contacts. Denies chronic/recent EtOH intake Patient not sure about relation to food consumption. Patient brought to ER by family for evaluation. 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 Allergies Allergy/AdvReac Type Severity Reaction Status Date / Time No Known Allergies Allergy Unverified 04/09/25 19:17 Home Medications Medication Instructions Recorded Confirmed Type No Known Home Medications 04/09/25 04/09/25 History Past Med/Surg History Problem List (Updated 04/09/25 @ 19:24 by Jennifer Cali PA-C) High bilirubin (Acute) Transaminitis (Acute) Abdominal pain, epigastric (Acute) Asthma Medical History Appendicitis Surgical History No pertinent past surgical history Social History Smoking Status: Current every day smoker Tobacco Type: E-cigarettes / Vaping Second Hand Exposure: No; Do You Dip or Chew Tobacco: No; Tobacco Cessation Education Requested by Patient: No Hx Alcohol Use: No Hx Substance Use: No Preferred Language: Mexican Communication Ability: Effective Communications Instructor Required: No Beliefs That Will Affect Care: None Current Living Situation: Parent Other Information That Helps Us Care for You: No Feels Safe at Home: Yes Safety Concerns: Feels Safe At This Time Assistive Devices: Glasses Assistive Devices Comment: glasses when driving Review of Systems Review of Systems: As per HPI, all other systems reviewed and negative Physical Exam Physical Exam: GENERAL: Comfortable, pleasant, no respiratory distress SKIN: Normal color, warm HEENT: [place] palpebral conjunctivae, no ptosis, dry buccal mucosa NECK : Supple, no tenderness CHEST : CTA, no tenderness HEART : Tachycardic, no obvious murmurs ABDOMEN: Some distention, epigastric tenderness EXTREMITIES : No LE swelling/tenderness, palpable pulses, no other conspicuous deformities noted NEUROLOGIC : Coherent, no facial asymmetry, no other gross focality Results & Data Results & Data Vital Signs (Past 12 Hours) Vital Signs Temp Pulse Pulse Resp BP BP Pulse Ox 04/09/25 22:33 97 H 20 142/96 H 98 04/09/25 22:30 101 H 04/09/25 21:30 90 18 129/80 100 04/09/25 19:00 94 H 19 126/90 100 04/09/25 14:30 36.6 C 102 H 16 150/75 H 99 O2 Del Method 04/09/25 22:33 04/09/25 22:30 04/09/25 21:30 Room Air 04/09/25 19:00 Room Air 04/09/25 14:30 Room Air Laboratory Results Laboratory Results WBC 7.47 K/ul (4.8-10.8) 04/09/25 16:10 RBC 5.24 M/uL (4.70-6.10) 04/09/25 16:10 Hgb 15.3 g/dL (14.0-18.0) 04/09/25 16:10 Hct 43.1 % (42.0-52.0) 04/09/25 16:10 MCV 82.3 fL (80.0-100.0) 04/09/25 16:10 MCH 29.2 pg (25.0-34.0) 04/09/25 16:10 MCHC 35.5 g/dL (32.0-36.0) 04/09/25 16:10 RDW Std Deviation 36.3 fL (36.4-46.3) L 04/09/25 16:10 RDW Coeff of Ariella 12.1 % (11.5-14.5) 04/09/25 16:10 Plt Count 209 K/uL (130-400) 04/09/25 16:10 MPV 11.3 fL (9.4-12.4) 04/09/25 16:10 Immature Gran % (Auto) 0.3 % 04/09/25 16:10 Neut % (Auto) 72.9 % 04/09/25 16:10 Lymph % (Auto) 9.8 % 04/09/25 16:10 [place] % (Auto) 15.3 % 04/09/25 16:10 Eos % (Auto) 1.6 % 04/09/25 16:10 Baso % (Auto) 0.1 % 04/09/25 16:10 Neut # (Auto) 5.45 K/uL (1.40-6.50) 04/09/25 16:10 Lymph # (Auto) 0.73 K/uL (1.20-3.40) L 04/09/25 16:10 [place] # (Auto) 1.14 K/uL (0.11-0.59) H 04/09/25 16:10 Eos # (Auto) 0.12 K/uL (0.00-0.50) 04/09/25 16:10 Baso # (Auto) 0.01 K/uL (0.00-0.20) 04/09/25 16:10 Immature Gran # (Auto) 0.02 K/uL (0.01-0.20) 04/09/25 16:10 PT 11.8 Seconds (9.0-12.0) 04/09/25 16:10 INR 1.1 (0.9-1.1) 04/09/25 16:10 D-Dimer 220 ug/L FEU (0-500) 04/09/25 16:10 Sodium 137 mmol/L (136-145) 04/09/25 16:10 Potassium 4.1 mmol/L (3.5-5.1) 04/09/25 16:10 Chloride 100 mmol/L (98-107) 04/09/25 16:10 Carbon Dioxide 29 mmol/L (21-32) 04/09/25 16:10 Anion Gap 8 (3-11) 04/09/25 16:10 BUN 10 mg/dl (6-23) 04/09/25 16:10 Creatinine 0.68 mg/dl (0.6-1.4) 04/09/25 16:10 Est Cr Clr Drug Dosing 207.1 ml/min 04/09/25 16:10 eGFR 136.47 04/09/25 16:10 BUN/Creatinine Ratio 14.7 (10-20) 04/09/25 16:10 Glucose 92 mg/dl (70-99(Fasting)) 04/09/25 16:10 Calcium 9.7 mg/dl (8.6-10.3) 04/09/25 16:10 Total Bilirubin 3.1 mg/dl (0.2-1.0) H 04/09/25 16:10 AST 156 U/L (13-39) H 04/09/25 16:10 ALT 278 U/L (7-52) H 04/09/25 16:10 Alkaline Phosphatase 190 U/L (34-104) H 04/09/25 16:10 Troponin I High Sens 3.1 pg/ml (0-20) 04/09/25 16:10 Total Protein 7.7 gm/dl (6.0-8.3) 04/09/25 16:10 Albumin 4.6 gm/dl (3.4-5.0) 04/09/25 16:10 Globulin 3.1 gm/dl (2.5-4.0) 04/09/25 16:10 Albumin/Globulin Ratio 1.5 (0.9-2) 04/09/25 16:10 Lipase 24 U/L (11-82) 04/09/25 16:10 Urine Color Dark Yellow 04/09/25 20:30 Urine Appearance Clear (Clear) 04/09/25 20:30 Urine pH 7.5 (4.5-7.5) 04/09/25 20:30 Ur Specific [place] 1.014 (1.000-1.030) 04/09/25 20:30 Urine Protein Negative (Negative) 04/09/25 20:30 Urine Glucose (UA) Negative (Negative) 04/09/25 20:30 Urine Ketones Negative (Negative) 04/09/25 20:30 Urine Blood Negative (Negative) 04/09/25 20:30 Urine Nitrite Negative (Negative) 04/09/25 20:30 Urine Bilirubin 1+ (Negative) H 04/09/25 20:30 Urine Urobilinogen Positive (Negative) H 04/09/25 20:30 Ur Leukocyte Esterase Negative (Negative) 04/09/25 20:30 Urine Comment 04/09/25 20:30 Impressions Chest X-Ray 04/09/25 16:04 Technique: 2 frontal views of the chest were obtained Comparison is made to the prior examinations dated 01/18/2022 Findings: There are no confluent pulmonary infiltrates. The heart size is within normal limits. No pleural effusion or pneumothorax is seen. There is no definite pulmonary nodule. No fracture is noted. No foreign body is seen Impression: No active disease Electronically signed by Hosea Mendes 04-09-2025 5:14 PM Abdomen Ultrasound 04/09/25 17:06 EXAMINATION: US abdomen right upper quadrant COMPARISON: None HISTORY: Elevated LFTs TECHNIQUE: The right upper quadrant of the abdomen was scanned in standard fashion with specialized ultrasound transducers using both march scale and limited color Doppler techniques. Findings: Liver: The liver demonstrates normal homogeneous echotexture. No evidence of a focal hepatic mass or intrahepatic biliary ductal dilatation. The main portal vein is patent with antegrade flow. 19.4 cm. Gallbladder: The gallbladder is well distended and of normal morphology. There is no wall thickening, pericholecystic fluid, sonographic Mariano's sign nor evidence for cholelithiasis. Bile Ducts: Both the intra- and extrahepatic biliary system are of normal caliber. The common bile duct measures 4 mm in diameter. Pancreas: Visualized portions of the head and body of the pancreas are unremarkable. Right kidney: Normal echotexture, without mass or hydronephrosis. Right kidney craniocaudal dimension: 12.1 cm Fluid: No evidence of ascites or pleural effusions. Impression: 1. Hepatomegaly Electronically signed by Austyn Clement 04-09-2025 6:45 PM Abdomen/Pelvis CT 04/09/25 20:15 Exam(s): CT ABDOMEN + PELVIS With Contrast IV Amt: 90 ml optiray 320 EXAM: CT Abdomen and Pelvis With Intravenous Contrast CLINICAL HISTORY: Reason for exam: Elevated LFTs. TECHNIQUE: Axial computed tomography images of the abdomen and pelvis with intravenous contrast. CTDI is 17.55 mGy and DLP is 864.85 mGy-cm. Automated exposure control was utilized for the study. A dose lowering technique was utilized adhering to the principles of ALARA. CONTRAST: Patient received 90 ml optiray 320 of IV contrast COMPARISON: CT abdomen/pelvis on 11/04/2024 FINDINGS: Lung bases: Unremarkable. No mass. No consolidation. ABDOMEN: Liver: Hepatic steatosis. Hepatomegaly. Gallbladder and bile ducts: Unremarkable. No calcified stones. No ductal dilation. Pancreas: Unremarkable. No mass. No ductal dilation. Spleen: Unremarkable. No splenomegaly. Adrenals: Unremarkable. No mass. Kidneys and ureters: Unremarkable. No hydronephrosis or obstructing ureteral stone. Stomach and bowel: Evaluation of the stomach is limited by underdistention. No mucosal thickening. No bowel obstruction or inflammation. PELVIS: Appendix: Prior appendectomy. Bladder: Underdistended bladder limits evaluation. Reproductive: Unremarkable as visualized. ABDOMEN and PELVIS: Intraperitoneal space: Unremarkable. No free air. No significant fluid collection. Bones/joints: No acute fracture. No dislocation. Soft tissues: Unremarkable. Vasculature: Unremarkable. No abdominal aortic aneurysm. Lymph nodes: Prominent mesenteric lymph nodes may be reactive. IMPRESSION: Hepatic steatosis. Hepatomegaly. Electronically signed by: Neal Gooden M.D. 04/09/25 21:06 PM Cholangiopancreatography MRI 04/09/25 21:14 Exam(s): MRI MRCP EXAM: MR Abdomen Without Intravenous Contrast, MRCP Protocol CLINICAL HISTORY: Reason for exam: abn lfts. PAIN: Abdominal Pain: RUQ Other Pain: Pt has intractable abdominal pain X 3 days. TECHNIQUE: Multiplanar magnetic resonance images of the abdomen without intravenous contrast using MRCP protocol. Moderate motion artifact. COMPARISON: CT abdomen pelvis, same day. FINDINGS: Liver: Unremarkable. No intrahepatic ductal dilatation. Gallbladder and bile ducts: Normal gallbladder. No stones or ductal dilatation. CBD 3 mm. Pancreas: Unremarkable. Spleen: Unremarkable. Adrenals: Unremarkable. Kidneys and ureters: Unremarkable. Stomach and bowel: Unremarkable. Intraperitoneal space: Unremarkable. Soft tissues: Unremarkable. Vasculature: Unremarkable. Lymph nodes: Unremarkable. IMPRESSION: 1. Normal gallbladder. No stones or ductal dilatation. 2. Moderate motion artifact. Electronically signed by: Victoria Hood M.D. 04/10/25 00:13 AM
--- NOTE | 2025-04-10 01:20 | Emergency Department Note ---
ED Visit Note The patient was signed out to me at change of shift pending CT imaging results due to transaminitis. CT imaging shows hepatomegaly. I spoke with Dr. Vergara, who agreed to evaluate and accept the patient for admission. Admission order was placed. Please refer to his documentation for further patient workup and care .
[2025-04-10] MEDS: SODIUM CHLORIDE 0.9% 1,000 ML IV STA (02:20)
[2025-04-10 05:06] VITALS: RESP 18
[2025-04-10 07:20] LABS: Hematocrit (blood only) 41.6 % (42.0-52.0); Hemoglobin 14.7 g/dL (14.0-18.0); Immature Granulocytes # (auto) 0.02 K/uL (0.01-0.20); Immature Granulocytes % (auto) 0.3 %; Mean Corpuscular Hemoglobin 29.3 pg (25.0-34.0); Mean Corpuscular Volume 83.0 fL (80.0-100.0); Platelet Count 200 K/uL (130-400); RDW Standard Deviation 37.0 fL (36.4-46.3); Red Blood Count 5.01 M/uL (4.70-6.10); White Blood Count 7.11 K/ul (4.8-10.8)
[2025-04-10 07:36] LABS: Alanine Aminotransferase 205.0 U/L (7-52); Albumin Globulin Ratio 1.5 (0.9-2); Albumin Level 4.3 gm/dl (3.4-5.0); Alkaline Phosphatase 182.0 U/L (34-104); Anion Gap 9.0 (3-11); Bilirubin,Total 2.3 mg/dl (0.2-1.0); Blood Urea Nitrogen 9.0 mg/dl (6-23); Calcium 9.4 mg/dl (8.6-10.3); Carbon Dioxide 25.0 mmol/L (21-32); Chloride 103.0 mmol/L (98-107); Creatinine Clr Calc Pharmacy 192.9 ml/min; Globulin 2.8 gm/dl (2.5-4.0); Glucose 94.0 mg/dl (70-99(Fasting)); Potassium 4.2 mmol/L (3.5-5.1); Sodium 137.0 mmol/L (136-145); Total Protein 7.1 gm/dl (6.0-8.3)
[2025-04-10 09:20] VITALS: BP 120/73; TEMP 98.2; O2SAT 96
[2025-04-10 09:46] LABS: Hep B Surface Ag with confirm Negative (Negative)
[2025-04-10 09:52] LABS: Hep C Ab Rflx HepCQuant RNA Negative (Negative)
--- NOTE | 2025-04-10 09:57 | Gastrointestinal Consultation ---
Date of Consultation April 10, 2025 Assessment & Plan (1) Transaminitis: (2) Abdominal pain, epigastric: Plan Patient admitted with sudden onset abdominal pain and found to have elevated LFTs. He has been feeling better since admission and is requesting discharge. - check Hep panel, TERRIE, ASMA, AMA, iron studies, and A1AT. these will take time to return and he can follow up findings as an outpatient. - would discharge on protonix 40mg once daily given complaints of reflux. - He can follow up on above in the outpatient GI clinic, though suspect that LFTs will normalize with time. - we discussed fatty liver. diet and exercise recommended as well as cessation of alcohol. we discussed possibility of this to progress to cirrhosis. - Further recommendations to come with Supervising GI provider. Please see co- signature comments. Supervising Physician Co-Signing Physician Notes I personally saw and examined the patient. I have reviewed the chart and agree with the documentation provided by the INCIDENT RESPONSE ANALYST including discussion about the assessment, treatment and plan. Briefly, 19 year old male who presented to the emergency department on 04/09 for evaluation of epigastric pain. The patient reports increased pain with deep breathing. He denies any chest pain. He states the pain is very sharp in nature. It is worse with deep breathing and certain movements. He tells me that pain started after eating some spicy tacos. Patient denies any shortness of breath. He denies any nausea or vomiting. Upon work up, he was found to have some elevation of his LFTs which is new. He had US, CT, and MRCP that was unremarkable for significant findings. He denies any drugs herbal medications IV drug abuse. No family history of liver disease. His pain is markedly improved. I would offer him a low-fat diet. We have sent off serology and so for hepatitis serologies that have resulted including hep C and hep B surface antigen are negative his iron studies are normal. The rest of his genetic and hep viral workup is pending. He can follow-up with [facility] for his elevated LFTs. Please add EBV given age. GI will sign off please call with questions History of Present Illness Reason for Consultation: abdominal pain, elevated LFTs Requesting Physician: Paulino Vergara MD Attending Physician: Maikol Rashid MD History of Present Illness Patient is a 19 year old male who presented to the emergency department on 04/09 for evaluation of epigastric pain. The patient reports increased pain with deep breathing. He denies any chest pain. He states the pain is very sharp in nature. It is worse with deep breathing and certain movements. He tells me that pain started after eating some spicy tacos. Patient denies any shortness of breath. He denies any nausea or vomiting. Upon work up, he was found to have some elevation of his LFTs which is new. He had US, CT, and MRCP that was unremarkable for significant findings. he reports that since he has been here his pain is starting to improve. he does admit prior issues with acid reflux in the past but does not use medications for this regularly. he reports a history of tattoos. no alcohol or drug use. no family history of liver disease. He denies jaundice, itching, dark urine, or acholic stools. The remainder of the GI ROS were unremarkable. 04/10/25 WBC 7.11, hgb 14.7, hct 41.6, plts 200, INR 1.1, D dimer 220, Na 13.7, K 4.2, BUN 9, Cr 0.73, t bili 2.3, AST 79, ALT 205, ALk 182, Lipase 24. MRCP 04/09/25 Normal gallbladder. No stones or ductal dilatation. Moderate motion artifact. CT A/P 04/09/25 - Hepatic steatosis. Hepatomegaly. US 04/09/25 Hepatomegaly Allergies Allergy/AdvReac Type Severity Reaction Status Date / Time No Known Allergies Allergy Unverified 04/09/25 19:17 Home Medications Medication Instructions Recorded Confirmed Type pantoprazole 40 mg tablet,delayed 40 mg PO QAM #30 tabs 04/10/25 Rx release Patient History Medical History Appendicitis Surgical History No pertinent past surgical history Social History Smoking Status: Current every day smoker Tobacco Type: E-cigarettes / Vaping Second Hand Exposure: No; Do You Dip or Chew Tobacco: No; Tobacco Cessation Education Requested by Patient: No Hx Alcohol Use: No Hx Substance Use: No Preferred Language: Welsh Communication Ability: Effective Intelligence Operations Specialist Required: No Beliefs That Will Affect Care: None Current Living Situation: Parent Other Information That Helps Us Care for You: No Feels Safe at Home: Yes Safety Concerns: Feels Safe At This Time Assistive Devices: None Assistive Devices Comment: glasses when driving Review of Systems Review of Systems: All systems reviewed & are unremarkable except as noted in HPI & below Physical Exam Constitutional: WD/WN, vitals as above Respiratory: normal respiratory effort, lungs clear to auscultation Cardiovascular: Rate/Rhythm: regular rate and regular rhythm Gastrointestinal (Abdomen): mid epigastric tenderness, no guarding, soft, normal bowel sounds. Psychiatric: Orientation: alert and oriented x 3 Affect: euthymic affect Results & Data Vital Signs (Past 12 Hours) Vital Signs Temp Pulse Pulse Resp BP BP Pulse Ox 04/10/25 09:19 98.2 F 84 18 120/73 96 04/10/25 02:15 98.8 F 93 H 18 128/73 97 04/10/25 02:00 128/69 96 04/10/25 01:00 103 H 138/90 96 04/10/25 00:30 101 H 23 136/75 94 04/10/25 00:00 110 H 20 135/77 95 04/09/25 23:30 98 H 18 134/88 98 04/09/25 23:00 94 H 14 143/87 H 99 04/09/25 22:33 97 H 20 142/96 H 98 04/09/25 22:30 101 H O2 Del Method 04/10/25 09:19 Room Air 04/10/25 02:15 Room Air 04/10/25 02:00 Room Air 04/10/25 01:00 Room Air 04/10/25 00:30 Room Air 04/10/25 00:00 Room Air 04/09/25 23:30 Room Air 04/09/25 23:00 Room Air 04/09/25 22:33 04/09/25 22:30 Coding Level of Care Code 20715 IN/OBS CONSULT LVL 4,60M Diagnoses Transaminitis R74.01 Abdominal pain, epigastric R10.13
[2025-04-10 10:46] LABS: Iron 65 mcg/dl (35-175); Total Iron Binding Cap Calc 319 mcg/dl (250-450); Transferrin 228 mg/dl (200-360); Transferrin (FE) Percent Satur 20 % (20-50)
--- NOTE | 2025-04-10 11:37 | Hospitalist Progress Note ---
Date of Service April 10, 2025 Assessment & Plan (1) Abdominal pain, epigastric: Plan: Hepatomegaly/Hepatic steatosis Transaminitis Family history of liver disease Abdominal pain/Suspected GERD -- CT ABD:Hepatic steatosis. Hepatomegaly. -- MRCP:Normal gallbladder. No stones or ductal dilatation. Moderate motion artifact. -- Patient denies alcohol, Tylenol use --Normal iron panel -LFTs trending down --Hepatitis panel, TERRIE, antimitochondrial antibody, anti-smooth muscle antibody, alpha-1 antitrypsin pending Appreciate GI input Started on Protonix Please follow-up with GI on discharge with repeat blood work Bronchial asthma Currently no signs of exacerbation Monitor DVT Px: SCDs CODE STATUS Full code Disposition Home Admission and Anticipated Discharge Date Admission Date: April 10, 2025 Subjective Patient is seen and examined at bedside States that his abdominal pain is much improved Tolerating current diet Denies any nausea,, diarrhea, chest pain, dyspnea Updated patient's family over the phone Eager to get discharged Review of Systems Review of Systems: All systems reviewed & are unremarkable except as noted in Subjective Physical Exam Physical Exam: Physical Exam: Vitals signs as noted above General Appearance:Moderately built and nourished, no apparent distress Head: normocephalic, Atraumatic Eyes: normal inspection, EOMI Neck: supple, Trachea midline Respiratory/Chest: Normal breath sounds, CTA, No accessory muscle use Cardiovascular: S1, S2, No murmur Abdomen/GI:Soft, Mild Epigastric tender, Bowel sounds present Extremities/Musculoskeletal:normal inspection, no edema Neurologic/Psych:AAOX3, grossly no focal neurological deficits Skin: normal color, warm Results & Data Results & Data Vital Signs (Past 12 Hours) Vital Signs Temp Pulse Pulse Resp BP BP Pulse Ox 04/10/25 09:19 36.8 C 84 18 120/73 96 04/10/25 02:15 37.1 C 93 H 18 128/73 97 04/10/25 02:00 128/69 96 04/10/25 01:00 103 H 138/90 96 04/10/25 00:30 101 H 23 136/75 94 04/10/25 00:00 110 H 20 135/77 95 O2 Del Method 04/10/25 09:19 Room Air 04/10/25 02:15 Room Air 04/10/25 02:00 Room Air 04/10/25 01:00 Room Air 04/10/25 00:30 Room Air 04/10/25 00:00 Room Air Laboratory Results Short CBC 04/09/25 04/10/25 Range/Units 16:10 06:55 WBC 7.47 7.11 (4.8-10.8) K/ul Hgb 15.3 14.7 (14.0-18.0) g/dL Hct 43.1 41.6 L (42.0-52.0) % Plt Count 209 200 (130-400) K/uL BMP 04/09/25 04/10/25 16:10 06:55 Sodium 137 137 Potassium 4.1 4.2 Chloride 100 103 Carbon Dioxide 29 25 BUN 10 9 Creatinine 0.68 0.73 Glucose 92 94 Calcium 9.7 9.4 Liver Function 04/09/25 04/10/25 Range/Units 16:10 06:55 Total Bilirubin 3.1 H 2.3 H (0.2-1.0) mg/dl AST 156 H 79 H (13-39) U/L ALT 278 H 205 H (7-52) U/L Alkaline Phosphatase 190 H 182 H (34-104) U/L Albumin 4.6 4.3 (3.4-5.0) gm/dl Urine 04/09/25 Range/Units 20:30 Urine Color Dark Yellow Urine Appearance Clear (Clear) Urine pH 7.5 (4.5-7.5) Ur Specific [place] 1.014 (1.000-1.030) Urine Protein Negative (Negative) Urine Glucose (UA) Negative (Negative)
[2025-04-10 12:32] VITALS: PULSE 90
--- NOTE | 2025-04-10 13:53 | Discharge Summary ---
Date of Service April 10, 2025 Admission HPI Per Admitting Provider History obtained from patient, family, and records. Medical history significant for bronchial asthma. Last confinement October 2024 under General Surgery service for acute appendicitis status post surgery. Last week, patient noted intermittent burping symptoms somewhat precipitated by consumption of spicy chips. 3 days ago, patient noted intermittent achy epigastric pain associate with nausea and burping symptoms. Transient diarrhea symptoms. No fever, no chills. No unusual chest pain or SOB. Not sure about sick contacts. Denies chronic/recent EtOH intake Patient not sure about relation to food consumption. Patient brought to ER by family for evaluation. 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 Admission Exam Per Admitting Provider GENERAL: Comfortable, pleasant, no respiratory distress SKIN: Normal color, warm HEENT: [place] palpebral conjunctivae, no ptosis, dry buccal mucosa NECK : Supple, no tenderness CHEST : CTA, no tenderness HEART : Tachycardic, no obvious murmurs ABDOMEN: Some distention, epigastric tenderness EXTREMITIES : No LE swelling/tenderness, palpable pulses, no other conspicuous deformities noted NEUROLOGIC : Coherent, no facial asymmetry, no other gross focality Principal Diagnosis Hepatomegaly with hepatic steatosis Transaminitis Suspected GERD Discharge Data Allergies Allergy/AdvReac Type Severity Reaction Status Date / Time No Known Allergies Allergy Unverified 04/09/25 19:17 Consultations 04/09/25 21:18 ED Decision to Admit Stat 04/10/25 02:18 Consult Gastroenterology Routine Procedures Performed Laboratory Results WBC 7.11 K/ul (4.8-10.8) 04/10/25 06:55 RBC 5.01 M/uL (4.70-6.10) 04/10/25 06:55 Hgb 14.7 g/dL (14.0-18.0) 04/10/25 06:55 Hct 41.6 % (42.0-52.0) L 04/10/25 06:55 MCV 83.0 fL (80.0-100.0) 04/10/25 06:55 MCH 29.3 pg (25.0-34.0) 04/10/25 06:55 MCHC 35.3 g/dL (32.0-36.0) 04/10/25 06:55 RDW Std Deviation 37.0 fL (36.4-46.3) 04/10/25 06:55 RDW Coeff of Ariella 12.2 % (11.5-14.5) 04/10/25 06:55 Plt Count 200 K/uL (130-400) 04/10/25 06:55 MPV 11.7 fL (9.4-12.4) 04/10/25 06:55 Immature Gran % (Auto) 0.3 % 04/10/25 06:55 Neut % (Auto) 66.1 % 04/10/25 06:55 Lymph % (Auto) 13.5 % 04/10/25 06:55 [place] % (Auto) 17.9 % 04/10/25 06:55 Eos % (Auto) 1.8 % 04/10/25 06:55 Baso % (Auto) 0.4 % 04/10/25 06:55 Neut # (Auto) 4.70 K/uL (1.40-6.50) 04/10/25 06:55 Lymph # (Auto) 0.96 K/uL (1.20-3.40) L 04/10/25 06:55 [place] # (Auto) 1.27 K/uL (0.11-0.59) H 04/10/25 06:55 Eos # (Auto) 0.13 K/uL (0.00-0.50) 04/10/25 06:55 Baso # (Auto) 0.03 K/uL (0.00-0.20) 04/10/25 06:55 Immature Gran # (Auto) 0.02 K/uL (0.01-0.20) 04/10/25 06:55 PT 11.8 Seconds (9.0-12.0) 04/09/25 16:10 INR 1.1 (0.9-1.1) 04/09/25 16:10 D-Dimer 220 ug/L FEU (0-500) 04/09/25 16:10 Sodium 137 mmol/L (136-145) 04/10/25 06:55 Potassium 4.2 mmol/L (3.5-5.1) 04/10/25 06:55 Chloride 103 mmol/L (98-107) 04/10/25 06:55 Carbon Dioxide 25 mmol/L (21-32) 04/10/25 06:55 Anion Gap 9 (3-11) 04/10/25 06:55 BUN 9 mg/dl (6-23) 04/10/25 06:55 Creatinine 0.73 mg/dl (0.6-1.4) 04/10/25 06:55 Est Cr Clr Drug Dosing 192.9 ml/min 04/10/25 06:55 eGFR 133.58 04/10/25 06:55 BUN/Creatinine Ratio 12.3 (10-20) 04/10/25 06:55 Glucose 94 mg/dl (70-99(Fasting)) 04/10/25 06:55 Calcium 9.4 mg/dl (8.6-10.3) 04/10/25 06:55 Iron 65 mcg/dl (35-175) 04/10/25 10:03 TIBC 319 mcg/dl (250-450) 04/10/25 10:03 Transferrin 228 mg/dl (200-360) 04/10/25 10:03 Transferrin % Sat 20 % (20-50) 04/10/25 10:03 Total Bilirubin 2.3 mg/dl (0.2-1.0) H 04/10/25 06:55 AST 79 U/L (13-39) H 04/10/25 06:55 ALT 205 U/L (7-52) H 04/10/25 06:55 Alkaline Phosphatase 182 U/L (34-104) H 04/10/25 06:55 Troponin I High Sens 3.1 pg/ml (0-20) 04/09/25 16:10 Total Protein 7.1 gm/dl (6.0-8.3) 04/10/25 06:55 Albumin 4.3 gm/dl (3.4-5.0) 04/10/25 06:55 Globulin 2.8 gm/dl (2.5-4.0) 04/10/25 06:55 Albumin/Globulin Ratio 1.5 (0.9-2) 04/10/25 06:55 Lipase 24 U/L (11-82) 04/09/25 16:10 Urine Color Dark Yellow 04/09/25 20:30 Urine Appearance Clear (Clear) 04/09/25 20:30 Urine pH 7.5 (4.5-7.5) 04/09/25 20:30 Ur Specific [place] 1.014 (1.000-1.030) 04/09/25 20:30 Urine Protein Negative (Negative) 04/09/25 20:30 Urine Glucose (UA) Negative (Negative) 04/09/25 20:30 Urine Ketones Negative (Negative) 04/09/25 20:30 Urine Blood Negative (Negative) 04/09/25 20:30 Urine Nitrite Negative (Negative) 04/09/25 20:30 Urine Bilirubin 1+ (Negative) H 04/09/25 20:30 Urine Urobilinogen Positive (Negative) H 04/09/25 20:30 Ur Leukocyte Esterase Negative (Negative) 04/09/25 20:30 Urine Comment 04/09/25 20:30 Hep Bs Antigen Negative (Negative) 04/10/25 06:55 Hepatitis C Antibody Negative (Negative) 04/10/25 06:55 Impressions Chest X-Ray 04/09/25 16:04 Technique: 2 frontal views of the chest were obtained Comparison is made to the prior examinations dated 01/18/2022 Findings: There are no confluent pulmonary infiltrates. The heart size is within normal limits. No pleural effusion or pneumothorax is seen. There is no definite pulmonary nodule. No fracture is noted. No foreign body is seen Impression: No active disease Electronically signed by Hosea Mendes 04-09-2025 5:14 PM Abdomen Ultrasound 04/09/25 17:06 EXAMINATION: US abdomen right upper quadrant COMPARISON: None HISTORY: Elevated LFTs TECHNIQUE: The right upper quadrant of the abdomen was scanned in standard fashion with specialized ultrasound transducers using both march scale and limited color Doppler techniques. Findings: Liver: The liver demonstrates normal homogeneous echotexture. No evidence of a focal hepatic mass or intrahepatic biliary ductal dilatation. The main portal vein is patent with antegrade flow. 19.4 cm. Gallbladder: The gallbladder is well distended and of normal morphology. There is no wall thickening, pericholecystic fluid, sonographic Mariano's sign nor evidence for cholelithiasis. Bile Ducts: Both the intra- and extrahepatic biliary system are of normal caliber. The common bile duct measures 4 mm in diameter. Pancreas: Visualized portions of the head and body of the pancreas are unremarkable. Right kidney: Normal echotexture, without mass or hydronephrosis. Right kidney craniocaudal dimension: 12.1 cm Fluid: No evidence of ascites or pleural effusions. Impression: 1. Hepatomegaly Electronically signed by Austyn Clement 04-09-2025 6:45 PM Abdomen/Pelvis CT 04/09/25 20:15 Exam(s): CT ABDOMEN + PELVIS With Contrast IV Amt: 90 ml optiray 320 EXAM: CT Abdomen and Pelvis With Intravenous Contrast CLINICAL HISTORY: Reason for exam: Elevated LFTs. TECHNIQUE: Axial computed tomography images of the abdomen and pelvis with intravenous contrast. CTDI is 17.55 mGy and DLP is 864.85 mGy-cm. Automated exposure control was utilized for the study. A dose lowering technique was utilized adhering to the principles of ALARA. CONTRAST: Patient received 90 ml optiray 320 of IV contrast COMPARISON: CT abdomen/pelvis on 11/04/2024 FINDINGS: Lung bases: Unremarkable. No mass. No consolidation. ABDOMEN: Liver: Hepatic steatosis. Hepatomegaly. Gallbladder and bile ducts: Unremarkable. No calcified stones. No ductal dilation. Pancreas: Unremarkable. No mass. No ductal dilation. Spleen: Unremarkable. No splenomegaly. Adrenals: Unremarkable. No mass. Kidneys and ureters: Unremarkable. No hydronephrosis or obstructing ureteral stone. Stomach and bowel: Evaluation of the stomach is limited by underdistention. No mucosal thickening. No bowel obstruction or inflammation. PELVIS: Appendix: Prior appendectomy. Bladder: Underdistended bladder limits evaluation. Reproductive: Unremarkable as visualized. ABDOMEN and PELVIS: Intraperitoneal space: Unremarkable. No free air. No significant fluid collection. Bones/joints: No acute fracture. No dislocation. Soft tissues: Unremarkable. Vasculature: Unremarkable. No abdominal aortic aneurysm. Lymph nodes: Prominent mesenteric lymph nodes may be reactive. IMPRESSION: Hepatic steatosis. Hepatomegaly. Electronically signed by: Neal Gooden M.D. 04/09/25 21:06 PM Cholangiopancreatography MRI 04/09/25 21:14 Exam(s): MRI MRCP EXAM: MR Abdomen Without Intravenous Contrast, MRCP Protocol CLINICAL HISTORY: Reason for exam: abn lfts. PAIN: Abdominal Pain: RUQ Other Pain: Pt has intractable abdominal pain X 3 days. TECHNIQUE: Multiplanar magnetic resonance images of the abdomen without intravenous contrast using MRCP protocol. Moderate motion artifact. COMPARISON: CT abdomen pelvis, same day. FINDINGS: Liver: Unremarkable. No intrahepatic ductal dilatation. Gallbladder and bile ducts: Normal gallbladder. No stones or ductal dilatation. CBD 3 mm. Pancreas: Unremarkable. Spleen: Unremarkable. Adrenals: Unremarkable. Kidneys and ureters: Unremarkable. Stomach and bowel: Unremarkable. Intraperitoneal space: Unremarkable. Soft tissues: Unremarkable. Vasculature: Unremarkable. Lymph nodes: Unremarkable. IMPRESSION: 1. Normal gallbladder. No stones or ductal dilatation. 2. Moderate motion artifact. Electronically signed by: Victoria Hood M.D. 04/10/25 00:13 AM Ordered Studies 04/09/25 17:06 US abdomen limited Stat 04/09/25 20:15 CT abd pelvis IV con only Stat 04/09/25 21:14 MR MRCP Stat Hospital Course (1) Abdominal pain, epigastric: Hepatomegaly/Hepatic steatosis Transaminitis Family history of liver disease Abdominal pain/Suspected GERD -- CT ABD:Hepatic steatosis. Hepatomegaly. -- MRCP:Normal gallbladder. No stones or ductal dilatation. Moderate motion artifact. -- Patient denies alcohol, Tylenol use --Normal iron panel -LFTs trending down --Hepatitis panel, TERRIE, antimitochondrial antibody, anti-smooth muscle antibody, alpha-1 antitrypsin pending Appreciate GI input Started on Protonix Please follow-up with GI on discharge with repeat blood work Bronchial asthma Currently no signs of exacerbation Monitor DVT Px: SCDs CODE STATUS Full code Disposition Home Total Time Total Time Spent Total Time Spent (In Minutes): 49 minutes Discharge Plan Discharge Items Patient Disposition: Home - Self-Care Reason For Visit: ABD PAIN Discharge Diagnosis: Hepatomegaly with hepatic steatosis Transaminitis Suspected GERD Condition on Discharge: Good Activity: Resume your previous activity Exercise/Sports: Gradually increase as tolerated Non-emergency contact: Primary Care Provider and Strategic Planning Specialist Call non-emergency contact if: you have any medication questions, your symptoms worsen, your pain is concerning for you and you have a fever Follow-up/Referrals: Jennifer Shook MD [Outside Practitioners] - 04/15/25 9:00 am Alon Clifford PA-C [Physician Vice President Investor Relations] - (The office will call you with an appointment.) Diet: Heart Healthy Addtl Attending Provider Instructions: -- Follow-up with your primary care physician in 1 week --Follow-up with your abrasive band winder Dr. Arnaud Carlson as recommended --Your blood test: Hepatitis panel, TERRIE, anti-mitochondrial antibody, anti- smooth muscle, alpha-1 antitrypsin is pending at the time of discharge. Follow- up with your physician for results and further management. --Start taking Protonix 40 mg daily as recommended by your abrasive band winder -- Obtain blood test (liver function test) in 1 week to monitor your liver enzymes. Follow-up with your primary care physician/abrasive band winder for interpretation and further management. Seek immediate medical attention if your symptoms reoccur or worsen Please review medication list provided on discharge for any medication changes as instructed. Please call if you have any questions or problems. You can reach a [facility] hospitalist on duty at [facility] 24 hours a day by calling [phone] Pending Studies at Discharge: Yes Studies:: Hepatitis panel, TERRIE, anti-mitochondrial antibody, anti-smooth muscle, alpha-1 antitrypsin Stand-Alone Forms: My [facility], Smoking Cessation Medications and DC Order Prescriptions: New pantoprazole 40 mg Tablet,Delayed Release (Dr/Ec) 40 mg PO QAM Qty: 30 0RF Discharge Orders: Discharge Order (Routine); Ordered 04/10/25 Ordered By: Maikol Rashid Admission Data Admit Date/Time: 04/10/25 00:31 Attending Provider: Maikol Rashid Admit Provider: Paulino Vergara Primary Care Provider: PCP,NO Other Providers: Paulino Vergara; Bree Prasad; Prasanna Shepard; Katherine Jovel; Alix Townsend; Gertrudis Shook; Isela Anglin; Jesus Huynh; Tonya Joaquin; Nathan Moses; Austyn Mckeon; Jeanne Jaffe; Rosalinda Pino; Abena Bernabe; Charlie Arriaza; Williams Jung; Alon Clifford; Whitney Hartmann; Olga Adamson Jr; Mukesh Hahn; Smith Lowery; Arnaud Carlson; Mary Butler; Rene Bansal I; Marcela Meza; Zion Patrick; Pop Garcia; Surendra Guillen; Davonte Macedo; Eloina Paul Other Interventions: Discharge Summary Assessment (RN) Last Done: 04/10/25 12:30
[2025-04-12 08:57] LABS: Hepatitis A Antibody IgM NON-REACTIVE (NON-REACTIVE); Hepatitis B Core Antibody IgM NON-REACTIVE (NON-REACTIVE)
== END 2025-04-10 12:59 | disposition home or self-care (01) ==
LOC: 3W 14:24 → ED 14:24 → SUATTDRO 04-10 00:31 → 3W 04-10 02:08